=== PATIENT | male | born 1960 | race Caucasian/White ===

== ENCOUNTER 2020-01-21 15:50 | Emergency (ER) | payer MEDICARE, SELFPAY ==
[2020-01-21 15:50] VITALS: BP 138/74; PULSE 49; RESP 18; TEMP 37.2; O2SAT 98; BMI 28.3
--- NOTE | 2020-01-21 16:06 | ED_ITS ---
HPI - General Adult General: Chief complaint: General Medical Stated complaint: PAIN Time Seen by Provider: 01/21/20 15:59 Source: patient Mode of arrival: ambulatory Limitations: no limitations History of Present Illness: HPI narrative: Patient comes in today for complaints of groin pain and nausea and vomiting. Patient routinely takes oxycodone 30 mg 3 times a day for chronic pain related to cancer. Patient reports being out of his oxycodone for the last 5 days due to being away from home because his mother had fallen ill. Patient is from [place]. Patient reports pain and nausea started 2 days ago and he has been unable to sleep during this time. Patient appears mildly unwell. Patient appears in moderate to severe pain. Associated symptoms: Reports nausea and vomiting Review of Systems General: Reports: 10 or more systems reviewed and unremarkable except in HPI and below GI: Reports: nausea and vomiting : Reports: other (Phantom pain missing testicle.) PFS ED PFSH: Social History Smoking and tobacco status: current every day smoker Physical Exam Const: COMMON NORMALS: no acute distress and patient oriented x3 GENERAL APPEARANCE: cooperative HENMT: COMMON NORMALS: normocephalic and Normal external nose present HEAD & SCALP: normal to inspection and normocephalic NOSE: Normal external nose present MOUTH: Normal oral and palatal mucosa present THROAT: posterior oropharynx normal Eye: GENERAL EYE: appearance normal, both eyes and all related structures Neck/C-Spine: COMMON NORMALS: full ROM Chest: COMMONS NORMALS: normal inspection of the chest Resp: COMMON NORMALS: normal respiratory effort EFFORT & INSPECTION: Yes able to speak in complete sentences Cardio: COMMON NORMALS: regular rate and regular rhythm RATE: regular rate RHYTHM: regular rhythm GI: COMMON NORMALS: non-tender : COMMON NORMALS: Yes no CVA tenderness BLADDER/KIDNEY EXAM: Yes no CVA tenderness Back/Pelvis: COMMON NORMALS: no CVA tenderness and thoracic and lumbar spine normal to inspection Extremity: COMMON NORMALS: normal to inspection Neuro: COMMON NORMALS: patient oriented x3 and moves all extremities Psych: COMMON NORMALS: mental status grossly normal and cooperative Skin: COMMON NORMALS: no rashes or lesions noted GENERAL SKIN EXAM: no rashes or lesions noted Course Vital Signs: Vital signs: Vital Signs Temperature 98.9 F 01/21/20 15:50 Pulse Rate 49 L 06/22/20 15:50 Respiratory Rate 18 01/21/20 15:50 Blood Pressure 138/74 01/21/20 15:50 Pulse Oximetry 98 01/21/20 15:50 MDM - General Adult MDM Narrative: Medical decision making narrative: Patient comes in today for complaints of groin pain from the area of his missing testicle. 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 Exam notes abdomen soft and nontender. Vital signs were normal except for mild bradycardia. Skin is warm and dry. Differential diagnosis includes cancer related pain, opioid withdrawal, malingering. Patient was given a dose of morphine 4 mg and 25 mg of promethazine IM for pain and nausea. Patient was written prescription for hydrocodone and ondansetron for continued treatment of pain and nausea outside the ER. Reviewed recommendations for follow-up with primary care for further treatment. Patient reports understanding agreed to plan. Discharge Plan Discharge Patient Disposition: Home, Self-Care Clinical Impression: Groin pain Qualifiers: Laterality: unspecified laterality Qualified Code(s): R10.30 - Lower abdominal pain, unspecified Testicular cancer Qualifiers: Descendance of testis: unspecified Laterality: unspecified laterality Qualified Code(s): C62.90 - Malignant neoplasm of unspecified testis, unspecified whether descended or undescended Condition: Stable Prescriptions: New hydrocodone-acetaminophen 7.5-325 mg tablet 1 tab PO Q8H PRN (Reason: pain) Qty: 15 RF: 0 ondansetron HCl 4 mg tablet 4 mg PO Q8H PRN (Reason: nausea and vomiting) Qty: 10 RF: 0 Discharge Orders: Discharge Order (Routine); Ordered 01/21/20 Ordered By: Keith Stephens Discharge Diet: Usual diet Discharge Activity: Increase activity as tolerated Patient Instructions: Cancer Pain Activity Restrictions/Additional Instructions: Use medication sparingly for pain. Follow-up with primary care for further refills on medication. Return to the ER for high fever or new concerns. 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
[2020-01-21 16:32] VITALS: RESP 18; O2SAT 98
[2020-01-21] MEDS: morphine 4 mg/mL SDV 1 mL IM (16:32)
[2020-01-21] MEDS: promethazine 25 mg/mL SDV 1 mL IM (16:32)
[2020-01-21 16:42] VITALS: BP 158/74; PULSE 68; RESP 17; O2SAT 99
== END 2020-01-21 16:44 | disposition home or self-care (01) ==
PROVIDERS: Emergency Provider Nurse Practitioner Family
DX: R10.30 Lower abdominal pain, unspecified (principal); C62.90 Malignant neoplasm of unspecified testis, unspecified whether descended or undescended; F17.210 Nicotine dependence, cigarettes, uncomplicated
CPT/HCPCS: 12345; 96372; 99281; 99283; J2270; J2550

== ENCOUNTER 2020-02-13 16:02 | Emergency (ER) | payer MEDICARE, SELFPAY ==
[2020-02-13 16:06] VITALS: BP 133/64; PULSE 79; RESP 18; TEMP 37.1; O2SAT 98; BMI 29.0
--- NOTE | 2020-02-13 16:30 | ED_ITS ---
HPI - Male Genitourinary General: Chief complaint: Urogenital-Male Stated complaint: ABD PAIN Time Seen by Provider: 02/13/20 16:09 Source: patient Limitations: no limitations History of Present Illness: HPI Narrative: 59-year-old male with history of kidney stones complains of 8 out of 10 left flank pain for several days. He actually passed some stones and brought them in a baggy with him. He has been living in [facility] taking care of his mother but usually lives in [place]. Pain is dull and associated with nausea and vomiting. Nothing has made the pain better or worse. He states he has not had a CAT scan or seen a urologist in at least 5 years. Associated symptoms: Reports dysuria, nausea and vomiting Review of Systems General: Reports: 10 or more systems reviewed and unremarkable except in HPI and below Const: Denies: fever(s) or chills Eyes: Denies: change in vision ENMT: Denies: throat pain Card: Denies: chest pain Resp: Denies: dyspnea GI: Reports: nausea and vomiting; Denies: change in bowel habits : Reports: flank pain, difficulty urinating and dysuria Musc: Denies: muscle weakness Skin/Breast: Denies: rash Neuro: Denies: headache(s) Psych: Denies: hopelessness or suicidal ideation Endo: Denies: polyuria Yvon/Lymph: Denies: easy bruising or easy bleeding All/Imm: Denies: urticaria PFSH ED PFSH: Social History Smoking and tobacco status: current every day smoker Physical Exam Const: COMMON NORMALS: patient oriented x3, alert and well nourished OTHER: Laying on his right side looks uncomfortable HENMT: COMMON NORMALS: normocephalic and Normal external nose present HEAD & SCALP: normocephalic NOSE: Normal external nose present MOUTH: no trismus Eye: COMMON NORMALS: EOMs intact bilaterally and conjunctivae normal CONJUNCTIVA: Yes conjunctivae normal Neck/C-Spine: COMMON NORMALS: full ROM, no lymphadenopathy and supple CERVICAL SPINE: Yes cervical ROM normal Lymph: LYMPHATIC: no lymphadenopathy noted Resp: COMMON NORMALS: normal respiratory effort, No retractions, No use of accessory muscles and clear to auscultation bilaterally EFFORT & INSPECTION: Yes able to speak in complete sentences AUSCULTATION: clear to auscultation bilaterally Cardio: COMMON NORMALS: regular rate and regular rhythm RATE: regular rate RHYTHM: regular rhythm GI: COMMON NORMALS: Normal to inspection, nondistended, normoactive bowel sounds present, Soft to palpation, non-tender and no masses INSPECTION: Yes normal to inspection AUSCULTATION: Yes normoactive bowel sounds PALPATION: Yes Soft to palpation, No Guarding due to palpation present (GI) and No Rigid due to palpation Back/Pelvis: OTHER: Normal range of motion Extremity: GENERAL: Yes normal exam except as noted Neuro: COMMON NORMALS: patient oriented x3 and CN's II-XII intact bilaterally SENSORIUM/ORIENTATION: Yes alert SPEECH: speech normal Psych: COMMON NORMALS: mental status grossly normal Skin: COMMON NORMALS: no rashes or lesions noted GENERAL SKIN EXAM: no rashes or lesions noted Course Vital Signs: Vital signs: Vital Signs Temperature 98.7 F 02/13/20 16:06 Pulse Rate 75 02/13/20 20:32 Respiratory Rate 15 02/13/20 20:32 Blood Pressure 107/90 02/13/20 20:32 Pulse Oximetry 99 02/13/20 20:32 MDM - Male MDM Narrative: Medical decision making narrative: 59-year-old male that brought in kidney stones in a baggy with him that he states he passed at home but CT does not show any evidence of recently passed stone he does have stones in his kidneys. He complains of left flank pain and CT reveals probable gastroenteritis will dispose to home and have follow-up with his primary care doctor. states he can't urinate but bladdder scanner only shows 55 ml Lab Data: Attestation: I reviewed the patient's lab results. Labs: Lab Results 02/13/20 02/13/20 02/13/20 Range/Units 16:44 16:44 17:43 WBC 8.5 (4.0-10.0) 10^3/ uL RBC 5.06 (4.1-5.3) 10^6/u L Hgb 15.7 (11.7-16.6) g/dL Hct 47.5 (42.0-52.0) % MCV 93.9 (80-94) fL MCH 31.0 (28.0-34.0) pg MCHC 33.1 (30.0-36.0) g/dL RDW 13.4 (12.1-15.1) % Plt Count 277 (130-400) 10^3/c mm MPV 10.6 H (7.4-10.4) fL Neut % (Auto) 78.5 % Lymph % (Auto) 12.7 % [place] % (Auto) 8.5 % Eos % (Auto) 0.0 % Baso % (Auto) 0.1 % Neut # (Auto) 6.66 (1.8-7.7) 10^3/u L Lymph # (Auto) 1.1 (0.8-4.8) 10^3/u L [place] # (Auto) 0.7 (0.2-0.9) 10^3/u L Eos # (Auto) 0.0 (0.0-0.8) 10^3/u L Baso # (Auto) 0.0 (0.0-0.1) 10^3/u L Nucleated RBC % (a uto) 0 % Nucleated RBCs # 0.0 /100WBC Sodium Cancelled Cancelled Potassium Cancelled Cancelled Chloride Cancelled Cancelled Carbon Dioxide Cancelled Cancelled Anion Gap Cancelled Cancelled BUN Cancelled Cancelled Creatinine Cancelled Cancelled GFR Calculation Cancelled Cancelled Glucose Cancelled Cancelled POC Glucose (70-110) mg/dL Calculated Osmolal ity Cancelled Cancelled Calcium Cancelled Cancelled Total Bilirubin Cancelled Cancelled AST Cancelled Cancelled ALT Cancelled Cancelled Alkaline Phosphata se Cancelled Cancelled Total Protein Cancelled Cancelled Albumin Cancelled Cancelled Globulin Cancelled Cancelled 02/13/20 02/13/20 Range/Units 18:25 18:25 WBC (4.0-10.0) 10^3/ uL RBC (4.1-5.3) 10^6/u L Hgb (11.7-16.6) g/dL Hct (42.0-52.0) % MCV (80-94) fL MCH (28.0-34.0) pg MCHC (30.0-36.0) g/dL RDW (12.1-15.1) % Plt Count (130-400) 10^3/c mm MPV (7.4-10.4) fL Neut % (Auto) % Lymph % (Auto) % [place] % (Auto) % Eos % (Auto) % Baso % (Auto) % Neut # (Auto) (1.8-7.7) 10^3/u L Lymph # (Auto) (0.8-4.8) 10^3/u L [place] # (Auto) (0.2-0.9) 10^3/u L Eos # (Auto) (0.0-0.8) 10^3/u L Baso # (Auto) (0.0-0.1) 10^3/u L Nucleated RBC % (a uto) % Nucleated RBCs # /100WBC Sodium 142 Potassium 4.2 Chloride 103 Carbon Dioxide 26 Anion Gap 17.2 BUN 15 Creatinine 1.5 H GFR Calculation 47.6 L Glucose 131 H POC Glucose 118 (70-110) mg/dL Calculated Osmolal ity 292 Calcium 9.7 Total Bilirubin 0.4 AST 20 ALT 32 Alkaline Phosphata se 74 Total Protein 7.7 Albumin 4.5 Globulin 3.2 Imaging Data: CT Abd/Pel: Radiologist's impression: [place] [address] CT Scan Report Signed Patient: Tre Kuo #: [id number] : 9Acct#:[id number] Age/Sex: 59 / MADM Date: 02/13/20 Loc: ERRoom/Bed: Attending Dr: Ordering Provider/Ordering MD: Corinna Wan MD Date of Service: 02/13/20 Procedure(s): CT kidney stone 41476 Accession Number(s): [id number] Report Number: [id number] PROCEDURE INFORMATION: Exam: CT Abdomen And Pelvis Without Contrast Exam date and time: 02/13/2020 4:35 PM Age: 59 years old Clinical indication: Nausea and vomiting and other: Passing stones; Additional info: Left flank pain TECHNIQUE: Imaging protocol: Computed tomography of the abdomen and pelvis without contrast. Sagittal and coronal reformatted images were created and reviewed. Radiation optimization: All CT scans at this facility use at least one of these dose optimization techniques: automated exposure control; mA and/or kV adjustment per patient size (includes targeted exams where dose is matched to clinical indication); or iterative reconstruction. COMPARISON: No relevant prior studies available. RADIATION DOSE METRICS: Total DLP (mGy-cm): 1039.45 FINDINGS: Limitations: Evaluation of solid organs and vasculature is limited without intravenous contrast. This is standard protocol for evaluation of possible urolithiasis. Lungs: Visualized lungs are clear. Calcified granuloma in the left lower lobe. Pleural space: No pleural effusion. Heart: Visualized portions of the heart are unremarkable. Liver: The liver is unremarkable. Gallbladder and bile ducts: Few stones in the gallbladder. No biliary ductal dilatation. Pancreas: Mild atrophy of the pancreatic parenchyma. Few pancreatic parenchymal calcifications, consistent with sequela of chronic pancreatitis. No pancreatic ductal dilatation. Spleen: The spleen is unremarkable. Small splenule in the left upper quadrant. Adrenals: The right and left adrenal glands are unremarkable. Kidneys and ureters: Nonobstructing stones in the right kidney. The largest measures 3.4 mm. The left kidney is unremarkable. The right and left ureters are unremarkable. Stomach and bowel: No acute abnormality in the stomach. Fluid within the small bowel without evidence of mesenteric lymphadenopathy or bowel wall thickening. No acute abnormality in the colon. Appendix: The appendix is visualized and is unremarkable. No findings to suggest acute appendicitis. Intraperitoneal space: No free intraperitoneal air. No ascites. No loculated fluid collections to suggest an abscess. Vasculature: Mild atherosclerotic changes in the visualized arteries. Lymph nodes: No lymphadenopathy. Bladder: The bladder is incompletely filled, which can limit evaluation. No focal abnormality in the bladder however. Reproductive: Unremarkable as visualized. Bones/joints: Moderate degenerative changes at both the right and left hips. Mild degenerative changes of the right and left sacroiliac joints. Multilevel degenerative changes of varying severity in the visualized spine. Bilateral pars defects at L5. Grade 1 anterolisthesis of L5 on S1. Mild spinal canal stenosis at L2-L3 through L5-S1. Multilevel foraminal stenosis of varying severity in the lumbar spine. Soft tissues: Unremarkable. CT/CT kidney stone 57912 IMPRESSION: 1. Fluid within the small bowel without evidence of mesenteric lymphadenopathy or bowel wall thickening. This may reflect viral gastroenteritis in the appropriate clinical situation. 2. Cholelithiasis. 3. Nonobstructing right renal stones. 4. Incidental/nonacute findings are listed in the report. Radiation Dose CTDIVOL = (mGy): DLP = 1039.45 (mGy-cm) Dictated By:Verónica Ackerman MD Signed By:Verónica Ackermanigned Date/Time:02/13/20 1731 Discharge Plan Discharge Patient Disposition: Home, Self-Care Clinical Impression: Colitis without complication Abdominal pain Qualifiers: Abdominal location: generalized Qualified Code(s): R10.84 - Generalized a bdominal pain Condition: Stable Prescriptions: New Cipro 500 mg tablet 500 mg PO BID Qty: 14 RF: 0 Flagyl 500 mg tablet 500 mg PO BID 7 Days Qty: 14 RF: 0 Zofran 4 mg tablet 4 mg PO Q8H PRN (Reason: nausea and vomiting) 4 Days Qty: 20 RF: 0 No Action hydrocodone-acetaminophen 7.5-325 mg tablet 1 tab PO Q8H PRN (Reason: pain) Qty: 15 RF: 0 ondansetron HCl 4 mg tablet 4 mg PO Q8H PRN (Reason: nausea and vomiting) Qty: 10 RF: 0 alprazolam 1 mg tablet 2 mg PO BEDTIME PRN (Reason: Sleep) RF: 0 oxycodone 30 mg tablet See Rx Instructions .ROUTE .COMPLEX RF: 0 Discharge Diet: Advance as tolerated and Clear Liquid Patient Instructions: Cholecystitis (ED), Abdominal Pain (ED) Activity Restrictions/Additional Instructions: clear liquid diet, advance slowly as tolerated. Follow up with primary care this week. 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
[2020-02-13 16:52] LABS: Basophils % 0.1 %; Hematocrit 47.5 % (42.0-52.0); Hemoglobin 15.7 g/dL (11.7-16.6); Lymphocytes # 1.1 10^3/uL (0.8-4.8); Lymphocytes % 12.7 %; Mean Corpuscular HGB Conc 33.1 g/dL (30.0-36.0); Mean Corpuscular Volume 93.9 fL (80-94); Mean Platelet Volume 10.6 fL (7.4-10.4); Monocytes # 0.7 10^3/uL (0.2-0.9); Monocytes % 8.5 %; Neutrophils # 6.66 10^3/uL (1.8-7.7); Neutrophils % 78.5 %; Nucleated Red Blood Cells % 0 %; Platelet Count 277 10^3/cmm (130-400); Red Blood Count 5.06 10^6/uL (4.1-5.3); Red Cell Distribution Width 13.4 % (12.1-15.1); White Blood Count 8.5 10^3/uL (4.0-10.0)
[2020-02-13 16:57] VITALS: RESP 20
[2020-02-13] MEDS: ketorolac 30 mg/mL INJ 15 MG IVP (16:57)
[2020-02-13] MEDS: morphine 4 mg/mL SDV 1 mL IVP (16:57)
[2020-02-13] MEDS: sodium chloride 0.9% 1,000 ML 999 ML IV (16:58)
[2020-02-13] MEDS: ondansetron 2 mg/ML SDV 2 mL 4 MG IVP (16:58)
[2020-02-13 18:29] LABS: Glucose Point of Care 118 mg/dL (70-110)
[2020-02-13 18:31] VITALS: BP 130/77; PULSE 68; RESP 16; O2SAT 98
[2020-02-13 18:47] LABS: Alanine Aminotransferase 32 U/L (0-41); Albumin Level 4.5 g/dL (3.5-5.2); Alkaline Phosphatase 74 IU/L (40-130); Blood Urea Nitrogen 15 mg/dL (8-23); Calcium 9.7 mg/dL (8.5-10.5); Carbon Dioxide 26 mmol/L (22-29); Chloride 103 mmol/L (98-107); Globulin 3.2 g/dL (1.3-4.6); Glomerular Filtration Rate 47.6 mL/min (90-130); Glucose 131 mg/dL (65-115); Osmolality Calculated 292 mOsm/kg (285-295); Sodium 142 mmol/L (136-145); Total Bilirubin 0.4 mg/dL (0.15-1.2); Total Protein 7.7 g/dL (6.6-8.7)
--- NOTE | 2020-02-13 19:05 | PC.NURSE ---
Report received from KURT Sheffield and care transferred to KURT Martinez
[2020-02-13 19:21] VITALS: BP 139/86; PULSE 77; RESP 16; O2SAT 97
[2020-02-13 19:21] LABS: Anion Gap 17.2 (5-19); Aspartate Amino Transferase 20 U/L (0-40); Potassium 4.2 mmol/L (3.5-5.1)
[2020-02-13 20:30] VITALS: PULSE 68; RESP 16; O2SAT 97
[2020-02-13 20:32] VITALS: BP 107/90; PULSE 75; RESP 15; O2SAT 99
== END 2020-02-13 20:33 | disposition home or self-care (01) ==
PROVIDERS: Emergency Provider Emergency Medicine
DX: K52.9 Noninfective gastroenteritis and colitis, unspecified (principal); F17.210 Nicotine dependence, cigarettes, uncomplicated
CPT/HCPCS: 12345; 36415; 36416; 74176; 80053; 82962; 85025; 96361; 96374; 96375; 99283; 99284; J1885; J2270; J2405; J7030